=== PATIENT | female | born 1980 | race African-American/Black ===

== ENCOUNTER 2016-12-21 19:18 | Emergency (ER) | payer OTHER ==
[~2016-12-21] VITALS: Ht 162.6 cm; Wt 103.0 kg
[~2016-12-21 19:18] MED LIST: ALLEGRA-D12 HOUR PO; AMOXICILLIN500 MG OR; BIOTIN1 MG PO; BLEPH-1010 % OS; CEPHALEXIN500 MG PO; CIPRO500 MG OR; CIPROFLOXACN500 MG PO; CLARITIN-D1 TA1 OR; CLARITIN10 MG PO; CORTISPORIN OP7.5 ML OP; DARVOCET-N 100100 MG OR; DOXYCYC MONO100 M1 OR; FEOSOL65 MG PO; KEFLEX250 MG PO; LAMISIL250 MG PO; LEVAQUIN500 MG PO; LORTAB 5 PO; NAPROSYN500 MG PO; NIZORAL2 % EX; NO HOME MEDS; NO MEDS; PATANOL0.1 % OD; PATANOL0.1 % OP; TIZANIDINE4 MG PO; ULTRAM50 M1 PO
[2016-12-21] MEDS ORDERED: AMOXICILLIN500 MG PO (20:03)
[2016-12-21 20:29] VITALS: BP 110/66
== END 2016-12-21 20:29 | disposition home or self-care (01) | DRG 605 ==
LOC: ED 19:18
DX: S91.332A Puncture wound without foreign body, left foot, initial encounter (principal); J45.909 Unspecified asthma, uncomplicated; W22.8XXA Striking against or struck by other objects, initial encounter; Y93.H9 Activity, other involving exterior property and land maintenance, building and construction; Y92.007 Garden or yard of unspecified non-institutional (private) residence as the place of occurrence of the external cause

== ENCOUNTER 2017-10-17 23:00 | Emergency (ER) | payer OTHER ==
[~2017-10-17] VITALS: Ht 162.6 cm; Wt 100.0 kg
[~2017-10-17 23:00] MED LIST changes: +AMOXICILLIN500 MG PO
[2017-10-17 23:39] VITALS: BP 145/91
== END 2017-10-17 23:39 | disposition home or self-care (01) | DRG 605 ==
LOC: ED 23:00
DX: S81.012A Laceration without foreign body, left knee, initial encounter (principal); I83.892 Varicose veins of left lower extremity with other complications; X58.XXXA Exposure to other specified factors, initial encounter

== ENCOUNTER 2019-08-24 15:27 | Emergency (ER) | payer OTHER ==
[2019-08-24 15:27] VITALS: BP 162/76
[2019-08-24 16:38] LABS: URINE BILIRUBIN - DIPSTICK NEGATIVE (NEGATIVE); URINE BLOOD DIPSTICK NEGATIVE (NEGATIVE); URINE COLOR YELLOW; URINE GLUCOSE - DIPSTICK NEGATIVE (NEGATIVE); URINE KETONE NEGATIVE (NEGATIVE); URINE LEUK ESTERASE TRACE (NEGATIVE); URINE NITRITE - DIPSTICK NEGATIVE (Negative); URINE PROTEIN - DIPSTICK NEGATIVE (NEG-TRACE); URINE SPECIFIC GRAVITY <=1.005; URINE UROBILINOGEN - DIPSTICK 0.2 E.U./dL (0.2)
[2019-08-24] MEDS ORDERED: CEPHALEXIN500 MG PO (17:25)
[2019-08-24] MEDS ORDERED: CLARITIN10 M1 PO (17:25)
== END 2019-08-24 17:40 | disposition home or self-care (01) | DRG 816 ==
LOC: ED 15:27
PROVIDERS: Emergency Medicine
DX: I88.9 Nonspecific lymphadenitis, unspecified (principal); J02.9 Acute pharyngitis, unspecified

== ENCOUNTER 2019-10-06 09:08 | Inpatient (IN) | payer OTHER ==
[~2019-10-06] VITALS: Ht 162.6 cm; Wt 98.0 kg
[~2019-10-06 09:08] MED LIST changes: +CLARITIN10 M1 PO
--- NOTE | 2019-10-06 09:10 | NUR ---
PT TO ROOM VIA WC
--- NOTE | 2019-10-06 09:30 | NUR ---
PT WITH HOB ELEVATED, AIRWAY PATENT, RESP SHALLOW, PT C/O DECREASED 02 SAT AT HOME, LS DIMINISHED THROUGHOUT. RT AT BEDSIDE, PT PLACED ON 02 3-4 L VIA NC.
[2019-10-06 09:48] LABS: HEMATOCRIT 39.2 % (37.0-47.0); IMMATURE GRANULOCYTES 0.5 % (0.0-5.0); MEAN CELL VOLUME 75.2 fL CALC (80.0-100.0); MEAN CORPUSCULAR HGB CONC 30.6 g/dL CAL (32.0-36.0); NEUT# 6.89 thou/uL (2.00-7.15); RED BLOOD COUNT 5.21 mill/uL (4.20-5.60)
[2019-10-06 09:49] LABS: GFR > 60 ML/MIN (>=60 (CALC)); GFR FOR AFR.AMER. > 60 ML/MIN (>=60 (CALC))
[2019-10-06] MEDS ORDERED: PREDNISONE20 MG PO (09:57)
[2019-10-06] MEDS ORDERED: AMOXICILLIN875 MG PO (09:58)
[2019-10-06 10:05] LABS: ALBUMIN 4.4 g/dL (3.2-5.0); ALKALINE PHOSPHATASE 81 u/l (38-126); ANION GAP 14 (6-22 (CALC)); BILIRUBIN, TOTAL 0.5 mg/dL (0.0-1.4); BUN 8 mg/dL (7-17); BUN/CREATININE RATIO 11 (12-20 (CALC)); C-REACTIVE PROTEIN 8.4 mg/dL (0-0.9); CARBON DIOXIDE 24 mmol/l (22-30); CHLORIDE 99 mmol/l (95-108); CREATININE 0.7 mg/dL (0.5-1.0); GFR > 60 ML/MIN (>=60 (CALC)); GFR FOR AFR.AMER. > 60 ML/MIN (>=60 (CALC)); POTASSIUM 3.4 mmol/l (3.5-5.1); SGOT/AST 23 u/l (14-36); SODIUM 134 mmol/l (137-146); TOTAL PROTEIN 7.7 g/dL (6.3-8.2)
[2019-10-06 10:12] LABS: HCG SERUM/URINE (NEG/POS) NEGATIVE (NEGATIVE)
--- NOTE | 2019-10-06 10:30 | NUR ---
PT SITTING UP IN BED, APPEARS ANXIOUS, TEARFUL, STATES " I'M SCARED OF STAYING IN THE HOSPITAL" PT REASSURED THAT DR BALDWIN AND STAFF ARE DOING THEIR BEST TO MAKE HER COMFORTABLE AND THAT DR BALDWIN WOULD BE IN TO DISCUSS CLINICAL FINDINGS.
--- NOTE | 2019-10-06 11:30 | NUR ---
CLINICAL FINDINGS DISCUSSED WITH PT. PLAN OF CARE DISCUSSED WITH PT. MONITOR SHOWS SINUS TACH 111, RESP UNLABORED, PT STATES " FEELING BETTER" IVF COMPLETE. # 20 IN R AC, WITHOUT REDNESS / SWELLING.
--- NOTE | 2019-10-06 12:04 | NUR ---
PT OOB TO BSC, GAIT STEADY. NO DROP IN 02 SAT NOTED DURING TRANSFER FROM BED TO BSC.
--- NOTE | 2019-10-06 12:40 | NUR ---
SBAR PRINTED TO FLOOR
--- NOTE | 2019-10-06 12:56 | NUR ---
PT HAD ONE MODERATE SIZED, FORMED, BROWN BM. PT VOIDED APPROXIMATELY 100 CC BLOOD TINGED URINE. PT STATES " ON MY PERIOD RIGHT NOW" NO C/O URINARY SYMPTOMS VOICED.
--- NOTE | 2019-10-06 13:30 | NUR ---
PTC/O ANXIETY, REQUESTING MEDICATION TO " CALM HER NERVES" AWAITING CALL FROM DR FARAH FOR ORDERS.
--- NOTE | 2019-10-06 14:02 | NUR ---
PT TO BSC, HAD ONE, SOFT, BROWN BM. SOAP AND WATER GIVEN FOR BEDSIDE BATH PER PT REQUEST.
--- NOTE | 2019-10-06 14:45 | NUR ---
PT DENIES PAIN OR DISCOMFORT AT THIS TIME. MONITOR SHOWS SINUS TACH, 02 99% ON 3L NC. WILL CONTINUE TO MONITOR PT.
--- NOTE | 2019-10-06 15:15 | NUR ---
NO CHANGE IN PT STATUS.
--- NOTE | 2019-10-06 16:15 | NUR ---
PO FLUIDS GIVEN, PT DENIES PAIN AT THIS TIME. MONITOR SHOWS STACH 116, 02 99% 3L NC.
--- NOTE | 2019-10-06 16:45 | NUR ---
PT TO ICU VIA STRETCHER IN STABLE CONDITION.
--- NOTE | 2019-10-06 16:45 | NUR ---
REPORT TO ARNAUD EARL
[2019-10-06 17:00] VITALS: BP 147/96
--- NOTE | 2019-10-06 17:00 | NUR ---
PT ARRIVED FROM ER VIA STRETCHER AND WALKED TO BED. ALERT AND ORIENTED X3, MOVES ALL EXTREMITIES, DENIES PAIN OR DISCOMFORT AT THIS TIME. LUNGS CLEAR OVER DIM, ON 2LT VIA NC AT THIS TIME. SEE ADMISSION FOR FULL ASSESSMENT.
[2019-10-06 17:15] VITALS: BP 108/86
[2019-10-06 17:30] VITALS: BP 121/87
[2019-10-06 17:45] VITALS: BP 120/82
[2019-10-06 18:00] VITALS: BP 133/86
--- NOTE | 2019-10-06 19:30 | NUR ---
PATIENT SITTING UP IN BED WATCHING TV. RESP EVEN AND UNLABORED. NO S/S OF DISTRES NOTED. 2L O2 VIA NC. BOWEL SOUNDS PRESENT. GOOD PULSES PRESENT. SKIN WNL. PLAN OF CARE DISCUSSED. PATIENT INFORMED TO CALL WITH ANY QUESTIONS OR CONCERNS. FALL PRECATUIONS IN PLACE. PATIENT REQUESTS A RECLINER AT THIS TIME.
--- NOTE | 2019-10-06 19:45 | NUR ---
RECLINER BROUGHT TO ROOM. PATIENT UP TO BSC.
[2019-10-06 20:05] VITALS: BP 159/82
--- NOTE | 2019-10-06 21:49 | NUR ---
patient up to bsc
[2019-10-07 00:05] VITALS: BP 116/75
--- NOTE | 2019-10-07 00:17 | NUR ---
PATIENT RESTING WITH EYES CLOSED IN THE RECLINER AT THE BEDSIDE. RESP EVEN AND UNLABORED. NO S/S OF DISTRESS NOTED.
--- NOTE | 2019-10-07 00:46 | NUR ---
UP TO BS.
[2019-10-07 04:00] VITALS: BP 114/77
--- NOTE | 2019-10-07 04:40 | NUR ---
PATIENT RESTING IN RECLINER. RESP EVEN AND UNLABORED. NO S/S OF DISTRESS NOTED.
--- NOTE | 2019-10-07 06:01 | NUR ---
ATEMPTED TO DRAW BLOOD, UNABLE TO GET MORNING LABWORK.
--- NOTE | 2019-10-07 06:35 | NUR ---
LAB INFORMED THAT NURSE WASNT ABLE DRAW BLOOD. LAB WILL BE DRAWING BLOOD.
--- NOTE | 2019-10-07 08:00 | NUR ---
Pt resting in bed. Asks to use the bedside commode. Pt is on her menses. New pads provided. Assisted patient back to bed. Assessment completed. Lungs diminised in lower based. O2 at 2 liters via N/C. No resp distress noted. Saline lock right AC, site without redness or edema noted. Will continue to monitor condition. Call light within reach.
[2019-10-07 08:18] LABS: HEMATOCRIT 37.6 % (37.0-47.0); HEMOGLOBIN 11.7 g/dl (12.0-16.0); IMMATURE GRANULOCYTES 0.4 % (0.0-5.0); MEAN CELL VOLUME 75.5 fL CALC (80.0-100.0); MEAN CORPUSCULAR HGB 23.5 pG CALC (26.0-32.0); MEAN CORPUSCULAR HGB CONC 31.1 g/dL CAL (32.0-36.0); NEUT# 13.34 thou/uL (2.00-7.15); RED BLOOD COUNT 4.98 mill/uL (4.20-5.60); RED CELL DISTRI WIDTH 15.9 % (11.5-15.5)
[2019-10-07 08:40] LABS: ALBUMIN 4.2 g/dL (3.2-5.0); ALKALINE PHOSPHATASE 75 u/l (38-126); ANION GAP 14 (6-22 (CALC)); BILIRUBIN, TOTAL 0.4 mg/dL (0.0-1.4); BUN 7 mg/dL (7-17); BUN/CREATININE RATIO 11 (12-20 (CALC)); CARBON DIOXIDE 24 mmol/l (22-30); CHLORIDE 101 mmol/l (95-108); CREATININE 0.6 mg/dL (0.5-1.0); GFR > 60 ML/MIN (>=60 (CALC)); GFR FOR AFR.AMER. > 60 ML/MIN (>=60 (CALC)); POTASSIUM 3.7 mmol/l (3.5-5.1); SGOT/AST 24 u/l (14-36); SODIUM 135 mmol/l (137-146); TOTAL PROTEIN 7.5 g/dL (6.3-8.2)
[2019-10-07 08:58] LABS: C-REACTIVE PROTEIN 14.9 mg/dL (0-0.9)
[2019-10-07 09:00] VITALS: BP 108/72
--- NOTE | 2019-10-07 10:00 | NUR ---
Pt continues to sit up in chair. No change in assessment. No resp distress noted. Pt c/o of gas in upper gastric region. Will continue to monitor condition. Call light within.
--- NOTE | 2019-10-07 12:00 | NUR ---
Pt continues to sit in chair. Up to bedside commode to void. No change in assessment. No complaints voiced. Call light within reach.
[2019-10-07 14:45] VITALS: BP 108/67
--- NOTE | 2019-10-07 16:00 | NUR ---
Pt up to bedside commode voiding. Pt on menses, pad changed. Pt states "I am feeling better, sitting up helps." Will continue to monitor. Call light within reach.
[2019-10-07 16:45] VITALS: BP 108/74
--- NOTE | 2019-10-07 18:09 | NUR ---
Pt continues to sit in chair. Pt up to bedside commode. No resp. distress noted. States "dinner looks good, I am going to try to eat it." Call light within really good, I am going to try to eat it." Call light within reach.
--- NOTE | 2019-10-07 20:00 | NUR ---
UPON ENTERING ROOM PT FOUND TO BE SITTING UP IN RECLINER. APPEARS COMFORTABLE AND IN NO APPARENT DISTRESS. RESPIRATIONS ARE REGULAR AND UNLABORED. PHYSICAL ASSESMENT COMPLETE AT THIS TIME. SCHEDULED MED(S) ADMINISTERED, SEE E-MAR. PLAN OF CARE REVIEWED, PT DENIES QUESTIONS, VERBALIZES UNDERSTANDING. PROVIDED WITH EXTRA PILLOW, ASSISTED PT FROM CHAIR TO COMMODE AND THEN TO BED. GAIT STEADY AND BALANCED. DENIES FURTHER NEEDS AT THIS TIME. ITEMS WITHIN REACH, BED LOCKED IN LOW POSITION W/ BEDRAILS UP X2. CALL KIRBY WITHIN REACH, AGREES TO CALL PRN.
[2019-10-07 23:00] VITALS: BP 118/82
[2019-10-08 01:00] VITALS: BP 115/81
--- NOTE | 2019-10-08 01:14 | NUR ---
PT APPEARS TO BE SLEEPING COMFORTABLY, NO APPARENT DISTRESS, RESPIRATIONS REGULAR AND UNLABORED. CALL KIRBY REMAINS WITHIN REACH.
[2019-10-08 03:00] VITALS: BP 106/67
--- NOTE | 2019-10-08 04:45 | NUR ---
PT SITTING UP IN RECLINER PER HER PREFERENCE. APPEARS TO BE RESTING COMFORTABLY. RESPIRATIONS REGULAR AND UNLABORED. CALL KIRBY WITHIN REACH, AGREES TO CALL PRN.
--- NOTE | 2019-10-08 06:37 | NUR ---
PHYSICAL ASSESMENT UNCHANGED FROM BEGINING OF SHIFT BASELINE. PT AFEBRILE, HEMODYNAMICS STABLE. DENIES NEEDS AT THIS TIME. ITEMS REMAIN WITHIN REACH. BED REMAINS LOCKED IN LOW POSITION W/ BEDRAILS UPX2. CALL KIRBY REMAINS WITHIN REACH, AGREES TO CALL PRN.
--- NOTE | 2019-10-08 07:20 | NUR ---
PT RESTING IN CHAIR, ALERT AND ORIENTED X4, MOVES ALL EXTREMITIES, AFEBRILE, DENIES PAIN OR DISCOMFORT AT THIS TIME, CALL LIGHT WITHIN REACH, WILL CONTINUE TO MONITOR.
[2019-10-08 07:28] VITALS: BP 104/65
--- NOTE | 2019-10-08 08:40 | NUR ---
DR FARAH AT BEDSIDE, PT RESTING IN CHAIR
--- NOTE | 2019-10-08 10:00 | NUR ---
PT RESTING IN CHAIR, DENIES PAIN OR DISCOMFORT AT THIS TIME, WILL CONTINUE TO MONITOR.
--- NOTE | 2019-10-08 12:00 | NUR ---
PT ASSESSED, RESTING IN CHAIR EATING LUNCH, ALERT AND ORIENTEDX4, AMBULATORY, OXYGEN AT 2LT NC, DENIES PAIN OR DISCOMFORT AT THIS TIME, ALL VSS PER MONITOR. CALL LIGHT WITHIN REACH, WILL CONTINUE TO MONITOR.
--- NOTE | 2019-10-08 14:00 | NUR ---
PT RESTING IN CHAIR, CLEAN WASH CLOTHES AND GOWN AT BEDSIDE, PT WILL BATHE SELF. ALL VSS PER MONITOR, CALL LIGHT WITHIN REACH. WILL CONTINUE TO MONITOR.
--- NOTE | 2019-10-08 17:16 | NUR ---
PT RESTING IN BED, ASSESSED, ALERT AND ORIENTEDX4, AMBULATORY, AFEBRILE. DENIES PAIN OR DISCOMFORT AT THIS TIME. CALL LIGHT WITHIN REACH, WILL CONTINUE TO MONITOR.
--- NOTE | 2019-10-08 17:44 | NUR ---
DINNER AT BEDSIDE.
--- NOTE | 2019-10-08 18:38 | NUR ---
pt resting in chair, denies pain or discomfort at this time. will continue to monitor
[2019-10-08 20:00] VITALS: BP 125/87
--- NOTE | 2019-10-08 20:00 | NUR ---
sitting in bedside chair. denies resp distress. electronic device monitor shows sinus rhythm hr 96. #20 rac saline lock. po fluids taken well. voids well. menses conts.
--- NOTE | 2019-10-08 21:00 | NUR ---
sitting in bedside chair talking on cell phone. denies resp diff. instructed to sleep in the prone position is possible. pt verbalized understanding.
--- NOTE | 2019-10-09 00:01 | NUR ---
lying quietly in bed on her left side. no apparent distress. cardiac cath lab radiology technologist shows sinus rhythm hr 80.
--- NOTE | 2019-10-09 03:30 | NUR ---
sao2 90%. awakens easily. o2 began @ 3 l/m. blood drawn & sent to lab. sao2 93%. pt sat self in high fowlers position. denies distress.
--- NOTE | 2019-10-09 04:00 | NUR ---
sao2 remains @ 93%. denies distress. admits "i tried to sleep on my stomach but couldn't."
--- NOTE | 2019-10-09 04:15 | NUR ---
brushed teeth @ sink then to recliner per request. fátima well.
[2019-10-09 05:24] LABS: HEMATOCRIT 35.9 % (37.0-47.0); HEMOGLOBIN 10.9 g/dl (12.0-16.0); IMMATURE GRANULOCYTES 1.2 % (0.0-5.0); MEAN CELL VOLUME 76.4 fL CALC (80.0-100.0); MEAN CORPUSCULAR HGB 23.2 pG CALC (26.0-32.0); MEAN CORPUSCULAR HGB CONC 30.4 g/dL CAL (32.0-36.0); NEUT# 7.63 thou/uL (2.00-7.15); RED BLOOD COUNT 4.7 mill/uL (4.20-5.60)
[2019-10-09 05:50] LABS: ALBUMIN 3.7 g/dL (3.2-5.0); ALKALINE PHOSPHATASE 59 u/l (38-126); ANION GAP 11 (6-22 (CALC)); BILIRUBIN, TOTAL 0.4 mg/dL (0.0-1.4); BUN 7 mg/dL (7-17); BUN/CREATININE RATIO 14 (12-20 (CALC)); CARBON DIOXIDE 26 mmol/l (22-30); CHLORIDE 103 mmol/l (95-108); CREATININE 0.5 mg/dL (0.5-1.0); GFR > 60 ML/MIN (>=60 (CALC)); GFR FOR AFR.AMER. > 60 ML/MIN (>=60 (CALC)); POTASSIUM 4.2 mmol/l (3.5-5.1); SGOT/AST 22 u/l (14-36); SODIUM 135 mmol/l (137-146); TOTAL PROTEIN 6.9 g/dL (6.3-8.2)
--- NOTE | 2019-10-09 06:12 | NUR ---
remains in bedside chair. sao2 97%. nad.
[2019-10-09 07:30] VITALS: BP 139/99
--- NOTE | 2019-10-09 07:35 | NUR ---
PT SEEN SITTING UP IN CHAIR AT BEDSIDE. LUNGS CLEAR, DIMINISHED, 3 LPM NC. PT ASKING ABOUT BLOODWORK AND VITAL SIGNS. PT APPEARS TO BE ANXIOUS, FOCUSING ON MONITORS AND LABS. CHRONIC HYPERTENSION DISCUSSED WITH PT.
--- NOTE | 2019-10-09 11:08 | NUR ---
PT WITH PAIN TO RAC WITH ZITHROMAX INFUSION, SITE CHANGED TO RIGHT HAND #22, IV ABX INFUSED WITHOUT DIFFICULTY AFTER PLACEMENT. PT AWARE OF PENDING TRANSFER TO ROOM 282 IN [facility]. NO REPORT OF PAIN OR SHORTNESS OF BREATH.
--- NOTE | 2019-10-09 12:40 | NUR ---
PT AWARE OF PENDING TRANSFER TO MED/SURG FLOOR. NO DISTRESS, NO COMPLAINTS OF SHORNESS OF BREATH OR OTHERWISE.
--- NOTE | 2019-10-09 13:15 | NUR ---
PT ARRIVED TO ROOM 282 VIA WHEELCHAIR WITH ICU STAFF; ALERT AND ORIENTED AND IN STABLE CONDITION. PT AMBULATED TO BATHROOM ON ARRIVAL. ON OXYGEN 3L VIA NC; TITRATED DOWN TO 2L. ORIENTED TO ROOM AND CALL LIGHT SYSTEM. SAFETY MEASURES IN PLACE. CALL LIGHT WITHIN REACH.
[2019-10-09 13:35] VITALS: BP 129/81
--- NOTE | 2019-10-09 13:44 | NUR ---
VSS. URINE COLLECTED AND SENT TO LAB. PT VOIDED 350 ML OF CLOUDY YELLOW URINE; ON MENSTRAL CYCLE. ALL WANTS ADDRESSED AT THIS TIME.
--- NOTE | 2019-10-09 13:45 | NUR ---
PT TAKEN TO ROOM 282 BY MANUEL WHITIFELD ALONG WITH CHART AND HER BELONGINGS. PT LEAVES ICU IN GOOD CONDITION.
[2019-10-09 14:05] LABS: URINE BILIRUBIN - DIPSTICK NEGATIVE (NEGATIVE); URINE BLOOD DIPSTICK LARGE (NEGATIVE); URINE COLOR YELLOW; URINE GLUCOSE - DIPSTICK 500 mg/dL (NEGATIVE); URINE KETONE NEGATIVE (NEGATIVE); URINE LEUK ESTERASE NEGATIVE (NEGATIVE); URINE NITRITE - DIPSTICK NEGATIVE (Negative); URINE PROTEIN - DIPSTICK NEGATIVE (NEG-TRACE); URINE SPECIFIC GRAVITY 1.015; URINE UROBILINOGEN - DIPSTICK 0.2 E.U./dL (0.2)
[2019-10-09 14:30] VITALS: BP 115/64
[2019-10-09 15:08] LABS: URINE WBC 0-2 WBC/hpf (0-5)
[2019-10-09 18:45] VITALS: BP 131/74
--- NOTE | 2019-10-09 20:40 | NUR ---
PT. IS SITTING UP IN CHAIR WITH NO DISTRESS NOTED. O2 INFUSING PER NC @1LITER/MIN AND SPO2 WNL. ASSESSMENT COMPLETED. PT. REPORTS BM TODAY. IV SITE PATENT AND SL. SCHEDULED LOVENOX ADMINISTERED. ENCOURAGED TO CALL FOR ANY NEEDS. CALL LIGHT IS IN REACH. WILL CONTINUE TO MONITOR.
--- NOTE | 2019-10-09 22:00 | NUR ---
RESTING IN BED WITH NO DISTRESS NOTED; DENIES NEEDS. CALL LIGHT IS IN REACH.
[2019-10-09 23:40] VITALS: BP 119/72
--- NOTE | 2019-10-10 | NUR ---
RESTING IN BED WATCHING TV. NO DISTRESS NOTED; DENIES NEEDS/PAIN.
[2019-10-10 03:40] VITALS: BP 125/79
--- NOTE | 2019-10-10 05:05 | NUR ---
RESTING IN BED WITH EYES CLOSED; NO DISTRESS NOTED; RESP. EVEN AND UNLABORED.
--- NOTE | 2019-10-10 07:50 | NUR ---
REPORT RECEIVED FROM MADY ANDRES. PT SITTING UP IN BEDSIDE CHAIR EATING BREAKFAST; ALERT AND ORIENTED. DENIES PAIN. RESPIRATIONS EVEN AND UNLABORED ON 1L VIA NC; SPO2 90-92%. REMAINS ON AIRBORNE/CONTACT PRECAUTIONS PENDING COVID SWAB RESULTS. PT HAS FREQUENT NEEDS. PLAN OF CARE REIVEWED. PT ENCOURAGED TO VERBALIZE CONCERNS. STATES UNDERSTANDING. SAFETY MEASURES IN PLACE. CALL LIGHT WITHIN REACH.
[2019-10-10 08:04] VITALS: BP 119/74
[2019-10-10 11:18] VITALS: BP 129/80
--- NOTE | 2019-10-10 12:00 | NUR ---
PT SITTING UP IN BEDSIDE CHAIR TALKING ON CELL PHONE. IV SITE APPEARS HEALTHY AND FLUSHES AFTER RECEIVING ROCEPHIN AND ZITHROMAX. NO REQUESTS OR CONCERNS AT THIS TIME. CALL LIGHT WITHIN REACH.
[2019-10-10 14:57] VITALS: BP 118/73
--- NOTE | 2019-10-10 16:00 | NUR ---
REMAINS 92-94% ON OXYGEN 1L VIA NC; REPORTS NO SOB. REQUETING 2 DINNER TRAYS. PT IS INDEPENDENT IN ROOM. SAFETY MEASURES IN PLACE. CALL LIGHT WITHIN REACH.
[2019-10-10 19:07] VITALS: BP 130/80
--- NOTE | 2019-10-10 19:37 | NUR ---
PT. SITTING UP IN RECLINER WITH NO DISTRESS NOTED. O2 INFUSING @1LITER/MIN PER NC AND SPO2 WNL. IV SITE PATENT AND SL. REPORTS 3 BM'S EARLIER IN DAYSHIFT, NONE OBSERVED BY THIS INSOLE DOUBLER. VOICES NO CONCERNS. PROVIDED PILLOW AND 2 BLANKETS PER HER REQUEST. ENCOURAGED TO CALL FOR ANY NEEDS. CALL LIGHT IS IN REACH. WILL CONTINUE TO MONITOR.
[2019-10-11 00:18] VITALS: BP 117/76
--- NOTE | 2019-10-11 00:31 | NUR ---
RESTING IN BED WITH EYES CLOSED; NO DISTRESS NOTED; RESP. EVEN AND UNLABORED.
[2019-10-11 03:38] VITALS: BP 121/79
--- NOTE | 2019-10-11 03:40 | NUR ---
AM LABS DRAWN. NO DISTRESS NOTED. DENIES NEEDS/PAIN. VSS. SPO2 99-98% ON 1 LITER/MIN AND REMOVED, PT. PLACED ON RA AND SPO2 REMAINS 97-98%. O2 PLACED AT BEDSIDE IN CASE OF NEED. ENCOURAGED TO CALL FOR ANY NEEDS. CALL LIGHT IS IN REACH.
[2019-10-11 05:06] LABS: HEMATOCRIT 37.1 % (37.0-47.0); HEMOGLOBIN 10.9 g/dl (12.0-16.0); MEAN CELL VOLUME 77.3 fL CALC (80.0-100.0); MEAN CORPUSCULAR HGB 22.7 pG CALC (26.0-32.0); MEAN CORPUSCULAR HGB CONC 29.4 g/dL CAL (32.0-36.0); NEUT# 5.84 thou/uL (2.00-7.15); RED BLOOD COUNT 4.8 mill/uL (4.20-5.60)
[2019-10-11 05:37] LABS: ALBUMIN 3.9 g/dL (3.2-5.0); ALKALINE PHOSPHATASE 63 u/l (38-126); ANION GAP 12 (6-22 (CALC)); BUN 9 mg/dL (7-17); BUN/CREATININE RATIO 14 (12-20 (CALC)); C-REACTIVE PROTEIN 2.6 mg/dL (0-0.9); CARBON DIOXIDE 28 mmol/l (22-30); CHLORIDE 101 mmol/l (95-108); CREATININE 0.6 mg/dL (0.5-1.0); GFR > 60 ML/MIN (>=60 (CALC)); GFR FOR AFR.AMER. > 60 ML/MIN (>=60 (CALC)); POTASSIUM 4.2 mmol/l (3.5-5.1); SGOT/AST 17 u/l (14-36); SODIUM 137 mmol/l (137-146); TOTAL PROTEIN 6.9 g/dL (6.3-8.2)
[2019-10-11 05:38] LABS: BILIRUBIN, TOTAL 0.2 mg/dL (0.0-1.4)
[2019-10-11 08:00] VITALS: BP 115/67
--- NOTE | 2019-10-11 09:00 | NUR ---
PT SEEN OOB IN CHAIR THIS MORNING, ALERT AND ORIENTED X 3. LUNGS CLEAR, RA. PT AMBULATORY IN ROOM WITHOUT DISTRESS.
[2019-10-11 10:30] VITALS: BP 123/67
--- NOTE | 2019-10-11 14:06 | NUR ---
PT PROVIDED OPTION FOR DISCHARGE OR STAY ANOTHER DAY, SO SHE DECIDED TO STAY ANOTHER DAY. PT REMAINS STABLE BEFORE.
[2019-10-11 16:12] VITALS: BP 114/74
--- NOTE | 2019-10-11 17:17 | NUR ---
PT SHOWERED, PLACED BACK ON TELE, NOT SEEN TO BE IN ANY DISTRESS.
[2019-10-11 18:35] VITALS: BP 118/67
--- NOTE | 2019-10-11 19:51 | NUR ---
PT. RESTING IN BED WITH NO DISTRESS NOTED. ASSESSMENT COMPLETED. DENIES NEEDS/PAIN. PT. REMAINS ON RA AND NO RESP. DISTRESS NOTED. UPDATED ON POC. SCHED LOVENOX GIVEN. ENCOURAGED TO CALL FOR ANY NEEDS.
--- NOTE | 2019-10-11 21:00 | NUR ---
RESTING IN BED WITH NO DISTRESS NOTED. DENIES NEEDS. CALL LIGHT IS IN REACH.
--- NOTE | 2019-10-12 00:05 | NUR ---
RESTING IN BED WITN NO DISTRESS. DENIES NEEDS/PAIN. CALL LIGHT IS IN REACH.
[2019-10-12 03:14] VITALS: BP 121/84
--- NOTE | 2019-10-12 05:01 | NUR ---
RESTING IN BED WITH EYES CLOSED; NO DISTRESS NOTED. RESP. EVEN AND UNLABORED.
--- NOTE | 2019-10-12 07:00 | NUR ---
REPORT RECEIVED FROM MADY ANDRES. PT RESTING IN BED; ALERT AND ORIENTED. AMBULATED TO BATHROOM AND NOW SITTING UP I BEDSIDE CHAIR. DENIES PAIN. RESPIRATIONS EVEN AND UNLABORED ON ROOM AIR; SPO2 91-93%. REMAINS ON AIRBORNE/CONTACT PRECAUTIONS FOR POSITIVE COVID SWAB. PLAN OF CARE REVIEWED. PT ENCOURAGED TO VERBALIZE CONCERNS. STATES UNDERSTANDING. SAFETY MEASURES IN PLACE. CALL LIGHT WITHIN REACH.
[2019-10-12 08:00] VITALS: BP 107/61
--- NOTE | 2019-10-12 10:13 | NUR ---
ROCEPHIN AND ZITHROMAX INFUSED WITHOUT DIFFICULTY; IV SITE TO RIGHT HAND APPEARS HEALTHY AND FLUSHES.
--- NOTE | 2019-10-12 11:46 | NUR ---
AMBULATED FOR WALK TEST; SPO2 WHILE RESTING 96%; DECREASED TO 90% WHILE AMBULATING AND RETURNED TO 93% ON ROOM AIR WHEN COMPLETED. NO SOB NOTED; PT TOLERATED WELL.
[2019-10-12] MEDS ORDERED: DECADRON2 MG PO ×2 (12:53)
[2019-10-12] MEDS ORDERED: ZITHROMAX250 MG PO ×2 (12:53)
--- NOTE | 2019-10-12 13:13 | NUR ---
IV site discontinued, cath intact. No edema , no redness, voices no discomfort.
--- NOTE | 2019-10-12 13:24 | NUR ---
Discharge instructions given. Patient verbalizes understanding of same. Discharged in stable condition via Wheelchair to Home with family. All belongings sent with pt.
== END 2019-10-12 13:50 | disposition home or self-care (01) | DRG 177 ==
LOC: ED 09:08 → ED-I 09:45 → ED 10:32 → MS2 10:33 → ED-I 10:33 → ICU 10:33 → MS2 10-09 13:15
PROVIDERS: Family Medicine; Nurse Practitioner Family; ADMIT Internal Medicine; ATTEND Internal Medicine
DX: U07.1 COVID-19 (principal); J12.89 Other viral pneumonia; J96.01 Acute respiratory failure with hypoxia; J45.909 Unspecified asthma, uncomplicated
CPT/HCPCS: J1650

== ENCOUNTER 2019-10-25 15:50 | Emergency (ER) | payer OTHER ==
[~2019-10-25] VITALS: Ht 162.6 cm; Wt 85.0 kg
[~2019-10-25 15:50] MED LIST changes: +AMOXICILLIN875 MG PO; +DECADRON2 MG PO; +PREDNISONE20 MG PO; +ZITHROMAX250 MG PO
[2019-10-25] MEDS ORDERED: PREDNISONE20 MG PO (16:17)
[2019-10-25] MEDS ORDERED: OMEPRAZOLE20 MG PO (16:17)
[2019-10-25] MEDS ORDERED: AMOX/K CLAV875 M1 PO (16:17)
[2019-10-25 17:32] LABS: HEMATOCRIT 38.8 % (37.0-47.0); HEMOGLOBIN 11.8 g/dl (12.0-16.0); IMMATURE GRANULOCYTES 0.4 % (0.0-5.0); MEAN CELL VOLUME 76.7 fL CALC (80.0-100.0); MEAN CORPUSCULAR HGB 23.3 pG CALC (26.0-32.0); MEAN CORPUSCULAR HGB CONC 30.4 g/dL CAL (32.0-36.0); NEUT# 8.01 thou/uL (2.00-7.15); RED BLOOD COUNT 5.06 mill/uL (4.20-5.60)
[2019-10-25 17:46] LABS: ALBUMIN 4.4 g/dL (3.2-5.0); ALKALINE PHOSPHATASE 82 u/l (38-126); ANION GAP 12 (6-22 (CALC)); BILIRUBIN, TOTAL 0.2 mg/dL (0.0-1.4); BUN 9 mg/dL (7-17); BUN/CREATININE RATIO 14 (12-20 (CALC)); CARBON DIOXIDE 24 mmol/l (22-30); CHLORIDE 101 mmol/l (95-108); CREATININE 0.6 mg/dL (0.5-1.0); GFR > 60 ML/MIN (>=60 (CALC)); GFR FOR AFR.AMER. > 60 ML/MIN (>=60 (CALC)); SGOT/AST 23 u/l (14-36); SODIUM 133 mmol/l (137-146)
[2019-10-25 18:28] LABS: URINE BILIRUBIN - DIPSTICK NEGATIVE (NEGATIVE); URINE BLOOD DIPSTICK NEGATIVE (NEGATIVE); URINE COLOR YELLOW; URINE GLUCOSE - DIPSTICK >=1000 mg/dL (NEGATIVE); URINE KETONE 15 mg/dL (NEGATIVE); URINE LEUK ESTERASE TRACE (NEGATIVE); URINE NITRITE - DIPSTICK NEGATIVE (Negative); URINE PROTEIN - DIPSTICK NEGATIVE (NEG-TRACE); URINE UROBILINOGEN - DIPSTICK 0.2 E.U./dL (0.2)
[2019-10-25 20:35] VITALS: BP 98/53
== END 2019-10-25 20:38 | disposition home or self-care (01) | DRG 308 ==
LOC: ED 15:50
PROVIDERS: Student in an Organized Health Care Education/Training Program
DX: R00.0 Tachycardia, unspecified (principal); R00.2 Palpitations; U07.1 COVID-19; J12.89 Other viral pneumonia
CPT/HCPCS: J2060; Q9967

== ENCOUNTER 2020-12-02 17:22 | Emergency (ER) | payer OTHER ==
[~2020-12-02] VITALS: Ht 162.6 cm; Wt 92.0 kg
[~2020-12-02 17:22] MED LIST changes: +AMOX/K CLAV875 M1 PO; +OMEPRAZOLE20 MG PO
== END 2020-12-02 21:03 | disposition home or self-care (01) | DRG 556 ==
LOC: ED 17:22
DX: M25.512 Pain in left shoulder (principal); V49.9XXA Car occupant (driver) (passenger) injured in unspecified traffic accident, initial encounter

== ENCOUNTER 2021-08-09 21:42 | Emergency (ER) | payer OTHER ==
[~2021-08-09] VITALS: Ht 162.6 cm; Wt 93.0 kg
[2021-08-09 21:51] VITALS: BP 124/81
[2021-08-09] MEDS ORDERED: METFORMIN HCL500 M2 PO (22:46)
[2021-08-09] MEDS ORDERED: BIOTIN1 MG PO (22:47)
== END 2021-08-09 23:41 | disposition home or self-care (01) | DRG 552 ==
LOC: ED 21:42
DX: S16.1XXA Strain of muscle, fascia and tendon at neck level, initial encounter (principal); S00.83XA Contusion of other part of head, initial encounter; J45.909 Unspecified asthma, uncomplicated; V49.40XA Driver injured in collision with unspecified motor vehicles in traffic accident, initial encounter